=== PATIENT | male | born 1995 ===

== ENCOUNTER 2020-09-26 14:05 | Emergency (ER) | payer OTHER, SELFPAY ==
[2020-09-26 14:28] VITALS: BP 110/60; PULSE 51; RESP 16; TEMP 36.7; O2SAT 99; BMI 17.1
--- NOTE | 2020-09-26 15:01 | ED.EXTPRO ---
HPI - Extremity Problem General Chief complaint: Extremity Injury, Upper Stated complaint: arm injury - work related Time Seen by Provider: 09/26/20 15:01 Source: patient Mode of arrival: ambulatory Limitations: no limitations History of Present Illness HPI Narrative: Patient reports that he was lifting heavy boxes at work and is complaining of pain in his biceps and triceps. Denies any other injury. Denies any joint pain. MD Complaint: extremity pain Onset (ago): hour(s) Pain Consistency: intermittent Location: left, right and upper extremity Quality: aching Radiation: none Relieving factors: nothing Exacerbating factors: palpation Associated symptoms: denies other symptoms Related Data Previous Rx's Medication Instructions Recorded ibuprofen 400 mg tablet 400 mg PO Q8H PRN #20 tab 09/26/20 Allergies Allergy/AdvReac Type Severity Reaction Status Date / Time seafood Allergy Swelling Verified 09/26/20 14:27 Review of Systems Review of Systems: Constitutional : No Weight loss, No Fever, No Chills, No Night Sweats, No Fatigue, No Malaise ENT/Mouth : No Hearing loss, No Ear Pain, No Nasal Congestion, No Sinus Pain, No Hoarseness, No sore throat, No Rhinorrhea, No Swallowing Difficulty Eyes: No Eye Pain, No Swelling, No Redness, No Foreign Body, No Discharge, No Vision Changes Cardiovascular : No Chest Pain, No SOB, No Dyspnea on Exertion, No Orthopnea, No Edema, No Palpitations Respiratory : No Cough, No Sputum, No Wheezing, No Smoke Exposure, No Dyspnea Gastrointestinal : No Nausea, No Vomiting, No Diarrhea, No Constipation, No abdominal Pain, No Hematochezia, No Melena Genitourinary : no irregular bleeding, No Dysuria, No Urinary Frequency, No Hematuria, No Urinary Incontinence, No Urgency, No Flank Pain, No Urinary Flow Changes, No Hesitancy Musculoskeletal : No joint pain, Myalgias, No Joint Swelling Skin : No Skin Lesions, No rash Yes all other systems are reviewed and are negative [facility] Past Medical History Medical History (Updated 09/26/20 @ 16:04 by Kristie Fields [facility]) Asthma Surgical History (Updated 09/26/20 @ 14:34 by Brea Smith) History of tonsillectomy and adenoidectomy Social History Social History Advance Directives: Yes Advance Directives Information Provided: Yes Advance Directives on File: No Physical Exam Vital Signs: Vital Signs: Last Vital Signs Temp 98.1 F 09/26/20 14:28 Pulse 51 09/26/20 14:28 Resp 16 09/26/20 14:28 BP 110/60 09/26/20 14:28 Pulse Ox 99 09/26/20 14:28 Body Mass Index 17.1 Const: General: healthy appearing, no acute distress and well developed Nutritional Appearance: well nourished Orientation/consciousness: patient oriented x3 Neck: Neck: Yes normal visual inspection, Yes full ROM and Yes trachea midline Thyroid: Thyroid normal Resp: Auscultation: clear to auscultation bilaterally Cardio: Rate: regular rate Rhythm: regular rhythm GI: Inspection: Yes normal to inspection and No distended Palpation (GI): No hepatosplenomegaly present Auscultation: normal bowel sounds Skin: General skin exam: elasticity normal, turgor normal and dry skin Neuro: General: patient oriented x3 Extrem: General: Yes normal to inspection, Yes full ROM and Yes capillary refill normal Right upper extremity: normal to inspection and full ROM Left upper extremity: normal to inspection and full ROM Course Course Course Narrative: 25-year-old male with complaining of bilateral arm pain. Patient strained his muscles by lifting heavy boxes. Patient denies any other injury or any other symptoms. I will send him home with ibuprofen. Patient was instructed to apply ice for the next 3 days then heat. Discharge Plan Discharge Clinical Impression: Muscle pain, Muscle strain Patient Disposition: Home, Self-Care Instructions: Musculoskeletal Pain (ED) Additional Instructions: You were seen here today for bilateral arm pain. Your pain was caused by lifting heavy boxes. You will be given ibuprofen for pain. Please follow-up with your PCP in 2-3 days. You may return to emergency department if you will experience worsening symptoms or any additional concerning symptoms Prescriptions: New ibuprofen 400 mg tablet 400 mg PO Q8H PRN (Reason: pain) Qty: 20 RF: 0 Stand Alone Forms: Work/School Release Interventions: ED Discharge Assessment Last Done: 09/26/20 16:07 Discharge Date/Time: 09/26/20 16:07
[2020-09-26] MEDS: Ibuprofen 400 MG TABLET PO (15:58)
== END 2020-09-26 16:07 | disposition home or self-care (01) ==
PROVIDERS: Emergency Provider Internal Medicine
DX: M79.18 Myalgia, other site (principal); S46.912A Strain of unspecified muscle, fascia and tendon at shoulder and upper arm level, left arm, initial encounter; S46.911A Strain of unspecified muscle, fascia and tendon at shoulder and upper arm level, right arm, initial encounter; X50.0XXA Overexertion from strenuous movement or load, initial encounter; Y93.9 Activity, unspecified; Y92.9 Unspecified place or not applicable; Y99.0 Civilian activity done for income or pay
CPT/HCPCS: 99283